=== PATIENT | female | born 1995 | race African-American/Black ===

== ENCOUNTER 2016-12-30 15:27 | Emergency (ER) | payer SELFPAY ==
--- NOTE | ~2016-12-30 | EKG ---
PATIENT: JAY ALVARENGA UNIT #: [id number] Ventricular Rate: 89 BPM Atrial Rate: 89 BPM P-R Interval: 144 ms QRS Duration: 76 ms Q-T Interval: 368 ms QTC Calculation(Bezet): 447 ms P [place]: 15 degrees Calculated R [place]: 44 degrees Calculated T [place]: 4 degrees Diagnosis Line: Normal sinus rhythm Diagnosis Line: Nonspecific T wave abnormality Diagnosis Line: Otherwise normal ECG Diagnosis Line: No previous ECGs available Diagnosis Line: Confirmed by TOOTIE MENSAH MD ([id number]) on 01/01/2017 Diagnosis Line: 11:12:19 AM INTERPRETING MD: MAKENNA HAGER
[2016-12-30] MEDS ORDERED: PROZAC (15:48)
[2016-12-30] MEDS ORDERED: NORVASC (15:48)
[2016-12-30 17:00] LABS: BASOPHIL# 0.1 X10e3 (0-0.3); EOSINOPHIL# 0.1 X10e3 (0-0.7); EOSINOPHIL% 1.4 % (0.0-7.0); HEMATOCRIT 39.6 % (35.0-45.0); HEMOGLOBIN 12.9 gm/dL (12.0-16.0); LYMPHOCYTE# 2.3 X10e3 (1.0-3.5); LYMPHOCYTE% 35.5 % (17.0-45.0); MEAN CELL VOLUME 81.5 FL (83-96); MEAN CORPUSCULAR HEMOGLOBIN 26.6 PG (28-34); MEAN CORPUSCULAR HGB CONC 32.6 g/dL (30-36); MEAN PLATELET VOLUME 9.8 FL (6.5-11.5); MONOCYTE# 0.4 X10e3 (0-1.0); MONOCYTE% 5.7 % (3.0-12.0); NEUTROPHIL# 3.7 X10e3 (1.5-7.1); NEUTROPHIL% 56.4 % (40-75); PLATELET COUNT 272 X10e3 (140-420); RED BLOOD COUNT 4.86 X10e (3.90-5.30); RED CELL DISTRIBUTION WIDTH 12.8 % (11.0-15.5); WHITE BLOOD COUNT 6.6 X10e3 (4.0-10.5)
[2016-12-30 17:01] LABS: DIFF IND NO
[2016-12-30 17:19] LABS: ALKALINE PHOSPHATASE 67 U/L (32-92); ALT (SGPT) 25 U/L (10-40); AST (SGOT) 20 U/L (10-42); BILIRUBIN, DIRECT 0.1 mg/dL (0.0-0.2); BILIRUBIN,INDIRECT 0.1 mg/dL (0.0-0.9); BILIRUBIN,TOTAL 0.2 mg/dL (0.2-2.0); BLOOD UREA NITROGEN 13 mg/dL (9-23); BUN/CREATININE RATIO 14.44; CALCIUM SERUM 9.2 mg/dL (8.4-10.2); CARBON DIOXIDE 26 mmol/L (22-31); CHLORIDE 106 mmol/L (100-111); CREATININE SERUM 0.9 mg/dL (0.6-1.4); GLOM FILT RATE Estimated ABOVE60 mL/min (>60); GLUCOSE FASTING 68 mg/dL (70-110); POTASSIUM 3.1 mmol/L (3.5-5.1); PROTEIN TOTAL SERUM 7.9 g/dL (6.0-8.3); SODIUM 141 mmol/L (135-145)
[2016-12-30 17:55] LABS: URINE APPEARANCE CLEAR; URINE BILIRUBIN NEG (NEG); URINE BLOOD NEG (NEG); URINE COLOR YELLOW; URINE GLUCOSE NEG (NORM); URINE KETONE NEG (NEG); URINE LEUKOCYTE ESTERASE NEG (NEG); URINE NITRATE NEG (NEG); URINE PH 6.5 (5-8); URINE SOURCE CLEAN CATCH; URINE UROBILINOGEN 0.2 MG/DL (NORM)
[2016-12-30 17:56] LABS: MICRO INDICATED? NO; URINE PROTEIN NEG (NEG)
[2016-12-30 18:06] LABS: AMPHETAMINE NEG (NEG); BARBITURATES NEG (NEG); BENZODIAZEPINES POS (NEG); COCAINE NEG (NEG); MARIJUANA NEG (NEG); OPIATES NEG (NEG); TRICYCLIC ANTIDEPRESSANTS NEG (NEG); U METHADONE NEG (NEG)
== END 2016-12-30 18:34 | disposition home or self-care (01) ==
LOC: SED 15:27
PROVIDERS: Physician Assistant
DX: R55 Syncope and collapse (principal); F41.9 Anxiety disorder, unspecified; F32.9 Major depressive disorder, single episode, unspecified; F43.10 Post-traumatic stress disorder, unspecified; F42.9 Obsessive-compulsive disorder, unspecified
CPT/HCPCS: 36415; 80048; 80076; 80307; 81003; 84703; 85025; 93005; 96360; 99284

== ENCOUNTER 2017-04-07 10:50 | Emergency (ER) | payer BC ==
--- NOTE | ~2017-04-07 | EKG ---
PATIENT: JAY ALVARENGA UNIT #: [id number] Ventricular Rate: 80 BPM Atrial Rate: 80 BPM P-R Interval: 150 ms QRS Duration: 90 ms Q-T Interval: 390 ms QTC Calculation(Bezet): 449 ms P [place]: 37 degrees Calculated R [place]: 47 degrees Calculated T [place]: 14 degrees Diagnosis Line: Normal sinus rhythm Diagnosis Line: Normal ECG Diagnosis Line: When compared with ECG of 30-DEC-2016 17:28, Diagnosis Line: No significant change was found Diagnosis Line: Confirmed by ROYA SOTELO MD ([id number]) on Diagnosis Line: 04/07/2017 10:20:13 PM INTERPRETING : VIN
--- NOTE | ~2017-04-07 | CR72 ---
[facility] A Service of [facility] & [facility] RADIOLOGY TEXT RESULTS PATIENT: JAY ALVARENGA LOCATION: [facility] : [birth year] UNIT #: [id number] AGE: [address]: Sean Ponce MD SEX: F ORDER DR: [id number] [facility] [address] [place], [place] [address] [id number] E MR#: [id number] Acc #: [id number] NAME: JAY ALVARENGA : 1995 SEX: F STUDY DATE/TIME: 04/07/2017 12:13 UNIT: [facility] ROOM: STUDY DESCRIPTION: CR Chest Single View Portable Attending Physician: Sean Ponce M.D. Ordering Physician: Sean Ponce M.D. Primary Care Physician: No Primary Care Physician MEDICAL IMAGING REPORT This report is preliminary unless electronic signature is present EXAM Chest portable 04/07/2017 1213 hours CLINICAL HISTORY 22-year-old with complaint of rapid heart rate, shortness of air, and increased anxiety today. COMPARISON None. FINDINGS Portable upright chest demonstrates slightly low lung volumes. The cardiac, mediastinal and hilar contours are normal. The lungs are clear and there are no effusions. IMPRESSION Slightly low lung volumes. No acute cardiopulmonary findings. Dictated by... Fabiana Valero M.D. THIS IS AN ELECTRONICALLY VERIFIED REPORT Fabiana Valero M.D. at 04/08/2017 9:31 AM RAZA/domenico TD: 04/07/2017 17:39 JOB #: [id number] MEDICAL IMAGING REPORT Page 1 of 1 COPY
[~2017-04-07 10:50] MED LIST: NORVASC; PROZAC
== END 2017-04-07 14:00 | disposition short-term general hospital (02) ==
LOC: CED 10:50
DX: R07.89 Other chest pain (principal); R45.851 Suicidal ideations; Z79.899 Other long term (current) drug therapy
CPT/HCPCS: 36415; 71010; 93005; 99285

== ENCOUNTER 2017-04-07 12:00 | Inpatient (IN) | payer BC ==
--- NOTE | ~2017-04-07 | DS ---
Unit #: [id number] #: [id number] Patient: JAY ALVARENGA [id number] [facility] [address] [place] [address] [id number] I MR#: [id number] NAME: JAY ALVARENGA ROOM: [facility] Age: 22 Sex: F Admission Date: 04/07/2017 : 1995 Discharge Date: 04/09/2017 Attending Physician: Erickson Méndez M.D. Primary Care Physician: Primary Care Physician No DISCHARGE SUMMARY REASON FOR ADMISSION The patient is a 22-year-old female, admitted to the [facility] with increasing depression and suicidal ideation. HOSPITAL COURSE The patient was admitted to the [facility] and continued on previously prescribed medications. Sertraline was increased from 50 to 100 mg daily. The patient brightened considerably during her brief stay in the hospital and denied suicidal ideation when seen by this physician on both 04/08/2017 and 04/09/2017. On 04/09/2017, she requested discharge citing a need to return to work and was in agreement with plan for followup through the auspices of [facility] mental health resources. Discharge was ordered. FINAL DIAGNOSES Major depressive disorder, recurrent, moderate. DISPOSITION ON DISCHARGE The patient is discharged on the following medications: Zoloft 100 mg daily for depression, BuSpar 10 mg t.i.d. for anxiety, and trazodone 100 mg at h.s. p.r.n. insomnia. DISCHARGE INSTRUCTIONS No dietary or physical restrictions were placed upon the patient at the time of discharge. FOLLOWUP Followup will take place through the auspices of [facility] mental health resources. PROGNOSIS The patient's prognosis is considered fair. Dictated by... Erickson Méndez M.D. CB/francisco javier TD: 04/09/2017 16:06 JOB #: [id number] Unit #: [id number] #: [id number] Patient: JAY ALVARENGA DISCHARGE SUMMARY Page 1 of 1 X Erickson Méndez MD X DISCHARGE SUMMARY
--- NOTE | ~2017-04-07 | HP ---
Unit #: [id number] #: [id number] Patient: ALIS ALVARENGA [id number] [place] [address] [id number] MR#: [id number] NAME: ALIS ALVARENGA ROOM: [facility] Age: 22 Sex: F Admission Date: 04/07/2017 : 1995 Attending Physician: Erickson Méndez M.D. Admitting Physician: Erickson Méndez M.D. Primary Care Physician: Primary Care Physician No HISTORY AND PHYSICAL HISTORY OF PRESENT ILLNESS Alis is a 22 year old admitted to [address] [place] [address] with depression and verbalizing wanting to hurt herself. PAST MEDICAL HISTORY 1. Morbid obesity. 2. High blood pressure. 3. History of self-harming. PAST SURGICAL HISTORY Nothing reported. ALLERGIES No known drug allergies. SOCIAL HISTORY Smokes less than 1/2 pack per day. Drinks alcohol on occasion and denies illicit drug use. FAMILY HISTORY Medically noncontributory. REVIEW OF SYSTEMS CONSTITUTIONAL: No fever or chills. HEENT: Denies any sore throat, ear pain or runny nose. CARDIOVASCULAR: Denies chest pain, irregular heart rhythm or palpitations. CHEST: Denies shortness of breath or cough. No hemoptysis. GASTROINTESTINAL: Denies nausea, vomiting, diarrhea or chronic constipation. ENDOCRINE: Denies history of increased thirst or urination. No recent significant weight loss or gain. GENITOURINARY: Denies dysuria, frequency, or hematuria. SKIN: Denies any rashes. HEMATOLOGIC: Denies history of increased bleeding or bruising. MUSCULOSKELETAL: Denies any hot, swollen joints. No generalized muscle pain. NEUROLOGIC: Denies problems with vision or speech. No frequent, severe headaches. No numbness, tingling or weakness in any extremities. Denies loss of bladder or bowel control. CURRENT MEDICATIONS 1. Desyrel 100 mg q.h.s. 2. Milk of Magnesia p.r.n. Unit #: [id number] #: [id number] Patient: ALIS ALVARENGA 3. Maalox p.r.n. 4. Tylenol p.r.n. 5. BuSpar 10 mg t.i.d. 6. Nicotine patch 7 mg daily. 7. Zoloft 50 mg daily. PHYSICAL EXAMINATION GENERAL: Alert, obese, no apparent distress. VITAL SIGNS: Blood pressure 138/84, heart rate 80, respirations 16, temperature 98.6. WEIGHT: 238. HEIGHT: 5 feet 1 inch. SKIN: Warm and dry without rash. She does have multiple linear superficial scratches along her left arm. There is no increased redness, swelling, heat or pus noted. HEENT: Normocephalic. TMs not viewed. Oral and nasal passages clear. Conjunctivae clear. PERRLA. EOMs intact. NECK: Supple without lymphadenopathy or thyromegaly. HEART: Regular rate and rhythm without murmur. LUNGS: Clear. ABDOMEN: Soft, nontender. : Not done. EXTREMITIES: No evidence of cyanosis, clubbing or edema. Moves all without focal deficit. NEUROLOGICAL: Grossly within normal limits. Cranial Nerves: II: Visual posadas are intact. III, IV AND : Extraocular movements are intact. Pupils are equal, round and reactive to light. V: Facial sensation is grossly normal. VII: Facial movements and expression are normal. VIII: Auditory acuity grossly intact. IX, X: Uvula is midline. Phonation is normal. XI: Patient shrugs shoulders and turns head normally. XII: Tongue protrudes in the midline. Sensory and Motor Function: Sensory and motor sensation is grossly normal. Motor: moves all extremities well. Coordination: Gait is normal. Deep Tendon Reflexes: Intact. IMPRESSION 1. Psychiatric admission. 2. Self-harming behavior sustained prior to this admission. RECOMMENDATIONS PSYCHIATRIC: Per psychiatrist. MEDICAL: See no contraindication to participate in facility's activities. MEDICAL PROGNOSIS Good. MEDICAL CONDITION Stable. Dictated by... Maria G Casas P.A.-C. for Lupis Evans M.D. Unit #: [id number] #: [id number] Patient: ALIS ALVARENGA GENESIS/rhona TD: 04/07/2017 20:33 JOB #: [id number] HISTORY AND PHYSICAL Page 1 of 1 X Maria G Casas HISTORY AND PHYSICAL
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
[2017-04-08 09:39] LABS: BASOPHIL% 0.4 % (0-2.5); EOSINOPHIL# 0.1 X10e3 (0-0.7); EOSINOPHIL% 1.9 % (0.0-7.0); HEMATOCRIT 41.2 % (35.0-45.0); HEMOGLOBIN 13.3 gm/dL (12.0-16.0); LYMPHOCYTE# 1.9 X10e3 (1.0-3.5); LYMPHOCYTE% 35.4 % (17.0-45.0); MEAN CELL VOLUME 83.2 FL (83-96); MEAN CORPUSCULAR HEMOGLOBIN 26.9 PG (28-34); MEAN CORPUSCULAR HGB CONC 32.4 g/dL (30-36); MEAN PLATELET VOLUME 10.2 FL (6.5-11.5); MONOCYTE# 0.3 X10e3 (0-1.0); MONOCYTE% 5.6 % (3.0-12.0); NEUTROPHIL% 56.7 % (40-75); PLATELET COUNT 250 X10e3 (140-420); RED BLOOD COUNT 4.96 X10e (3.90-5.30); RED CELL DISTRIBUTION WIDTH 12.4 % (11.0-15.5); WHITE BLOOD COUNT 5.3 X10e3 (4.0-10.5)
[2017-04-08 10:00] LABS: DIFF IND NO
[2017-04-08 10:25] LABS: ALBUMIN SERUM 3.4 g/dL (3.5-5.0); BILIRUBIN,TOTAL 0.3 mg/dL (0.2-2.0); BUN/CREATININE RATIO 17.14; CALCIUM SERUM 9.2 mg/dL (8.4-10.2); CREATININE SERUM 0.7 mg/dL (0.6-1.4); GLOM FILT RATE Estimated 140.5 mL/min (>60); POTASSIUM 4.1 mmol/L (3.5-5.1); PROTEIN TOTAL SERUM 6.9 g/dL (6.0-8.3)
[2017-04-08 12:47] LABS: URINE APPEARANCE CLEAR; URINE BILIRUBIN NEG (NEG); URINE BLOOD NEG (NEG); URINE COLOR YELLOW; URINE GLUCOSE NEG (NEG); URINE KETONE NEG (NEG); URINE LEUKOCYTE ESTERASE 1+ (NEG); URINE NITRATE NEG (NEG); URINE PH 5.5 (5-8); URINE PROTEIN 1+ (NEG); URINE UROBILINOGEN 0.2 MG/DL (NEG)
[2017-04-08 12:49] LABS: URBCS1 AUWI 0-2 /[HPF] (0-2); URINE BACTERIA AUWI 1+ (NEGATIVE); URINE SQUAMOUS EPITHELIAL CELL FEW /[HPF]
[2017-04-08 13:13] LABS: AMPHETAMINE NEG (NEG); BARBITURATES NEG (NEG); BENZODIAZEPINES NEG (NEG); COCAINE NEG (NEG); MARIJUANA NEG (NEG); OPIATES NEG (NEG); TRICYCLIC ANTIDEPRESSANTS NEG (NEG); U METHADONE NEG (NEG)
== END 2017-04-09 15:45 | disposition home or self-care (01) | DRG 885 ==
LOC: P2L 14:30
PROVIDERS: Specialist
DX: F33.1 Major depressive disorder, recurrent, moderate (principal); R45.851 Suicidal ideations; F41.0 Panic disorder [episodic paroxysmal anxiety]; Z91.5 Personal history of self-harm; F17.210 Nicotine dependence, cigarettes, uncomplicated
CPT/HCPCS: 80053; 80307; 81003; 84703; 85025

== ENCOUNTER 2017-07-06 09:34 | Emergency (ER) | payer BC ==
[~2017-07-06] VITALS: Ht 154.9 cm; Wt 102.5 kg
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
--- NOTE | ~2017-07-06 | CR142 ---
[facility] A Service of [facility] & [facility] RADIOLOGY TEXT RESULTS PATIENT: JYA ALVARENGA LOCATION: [facility] : [birth year] UNIT #: [id number] AGE: [address]: Kristi Ragsdale SEX: F ORDER DR: [id number] [facility] [address] [place], [place] [address] [id number] E MR#: [id number] Acc #: [id number] NAME: JAY ALVARENGA : 1995 SEX: F STUDY DATE/TIME: 07/06/2017 11:12 UNIT: [facility] ROOM: STUDY DESCRIPTION: CR Hand Min 3 Views Rt Attending Physician: Kristi Ragsdale P.A.-C. Ordering Physician: Kristi Ragsdale P.A.-C. Primary Care Physician: Primary Care Physician No MEDICAL IMAGING REPORT This report is preliminary unless electronic signature is present EXAM Right hand 3 views INDICATION Right hand pain today. COMPARISON No comparisons. FINDINGS No fracture. No dislocation. Soft tissue structures unremarkable. IMPRESSION Negative. Dictated by... Wesley Morton M.D. THIS IS AN ELECTRONICALLY VERIFIED REPORT Wesley Morton M.D. at 07/07/2017 7:09 AM Chante TD: 07/06/2017 11:47 JOB #: [id number] MEDICAL IMAGING REPORT Page 1 of 1 COPY
--- NOTE | ~2017-07-06 | CR172 ---
[facility] A Service of [facility] & [facility] RADIOLOGY TEXT RESULTS PATIENT: JAY ALVARENGA LOCATION: [facility] : [birth year] UNIT #: [id number] AGE: [address]: Kristi Ragsdale SEX: F ORDER DR: [id number] [facility] [address] [place], [place] [address] [id number] E MR#: [id number] Acc #: [id number] NAME: JAY ALVARENGA : 1995 SEX: F STUDY DATE/TIME: 07/06/2017 11:13 UNIT: [facility] ROOM: STUDY DESCRIPTION: CR Knee 3 Views Lt Attending Physician: Kristi Ragsdale P.A.-C. Ordering Physician: Kristi aRgsdale P.A.-C. Primary Care Physician: Primary Care Physician No MEDICAL IMAGING REPORT This report is preliminary unless electronic signature is present EXAM Left knee 3 views INDICATION Left knee pain this morning. There is no fracture or dislocation. No joint effusion. IMPRESSION Negative. Dictated by... Wesley Morton M.D. THIS IS AN ELECTRONICALLY VERIFIED REPORT Wesley Morton M.D. at 07/07/2017 7:09 AM Chante TD: 07/06/2017 11:49 JOB #: [id number] MEDICAL IMAGING REPORT Page 1 of 1 COPY
== END 2017-07-06 12:11 | disposition home or self-care (01) ==
LOC: CED 09:34 → CFTX 09:34
DX: S00.93XA Contusion of unspecified part of head, initial encounter (principal); S80.02XA Contusion of left knee, initial encounter; S60.221A Contusion of right hand, initial encounter; Y04.2XXA Assault by strike against or bumped into by another person, initial encounter; Y92.69 Other specified industrial and construction area as the place of occurrence of the external cause; Y99.0 Civilian activity done for income or pay; Z91.018 Allergy to other foods
CPT/HCPCS: 70450; 70486; 73130; 73562; 99284